=== PATIENT | male | born 1960 | race Hispanic/Latino ===

== ENCOUNTER 2019-01-16 05:20 | Emergency (ER) | payer OTHER ==
[2019-01-16 06:00] LABS: Basophils # (Auto) 0.1 K/mm3 (0.0-0.1); Basophils % (Auto) 0.6 % (0.0-1.8); Eosinophils % (Auto) 0.2 % (0.0-4.3); Hematocrit 45.1 % (35.5-45.6); Hemoglobin 15.8 gm/dl (11.8-15.2); Lymphocytes # (Auto) 1.8 K/mm3 (1.2-5.4); Mean Corpuscular HGB Conc 35 % (32-34); Mean Corpuscular Volume 100 fl (84-94); Monocytes % (Auto) 11.7 % (0.0-7.3); Platelet Count 119 K/mm3 (140-440); Red Blood Count 4.49 M/mm3 (3.65-5.03); Red Cell Distribution Width 12.6 % (13.2-15.2)
[2019-01-16 06:18] LABS: INR 0.96 (0.87-1.13)
[2019-01-16 06:19] LABS: Partial Thromboplastin Time 29.9 Sec. (24.2-36.6)
[2019-01-16 06:20] LABS: BUN/Creatinine Ratio 25; Blood Urea Nitrogen 20 mg/dL (9-20); Calcium 9.4 mg/dL (8.4-10.2); Hemolysis Index 15
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
[2019-01-16] MEDS ORDERED: PROVENTIL IH ONE (06:32)
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
--- NOTE | 2019-01-16 06:46 | XRay Report ---
PROCEDURE: XR WRIST 2V RT TECHNIQUE: RIGHT wrist radiographs, AP and lateral views. HISTORY: Pain and swelling COMPARISONS: None . FINDINGS: Fracture (s) and/or Dislocation(s): None . Alignment: Normal . Joint space(s): Normal . Soft tissues: Normal . Bone mineralization: Normal . Foreign bodies: None . IMPRESSION: Normal Examination . This document is electronically signed by Tk Potter MD., January 16 2019 07:44:49 AM ET
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
[2019-01-16] MEDS ORDERED: SUBLIMAZE IV ONE (07:34)
[2019-01-16] MEDS ORDERED: PERCOCET 5/325 PO ONE (07:34)
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
[2019-01-16 10:01] VITALS: BP 128/89
== END 2019-01-16 13:00 | disposition home or self-care (01) ==
LOC: ED 05:20 → EEVIPCON 05:20 → ED 13:00
DX: S00.03XA Contusion of scalp, initial encounter (principal); M25.511 Pain in right shoulder; M25.551 Pain in right hip; J44.9 Chronic obstructive pulmonary disease, unspecified; I10 Essential (primary) hypertension; E78.00 Pure hypercholesterolemia, unspecified; F17.200 Nicotine dependence, unspecified, uncomplicated; F12.10 Cannabis abuse, uncomplicated; Z95.1 Presence of aortocoronary bypass graft; Z98.890 Other specified postprocedural states; Y04.0XXA Assault by unarmed brawl or fight, initial encounter; Y93.89 Activity, other specified; Y92.89 Other specified places as the place of occurrence of the external cause; Y99.8 Other external cause status
CPT/HCPCS: 36415; 70450; 72100; 73030; 73100; 73502; 80048; 85025; 85610; 85730; 94640; 96374; 99285; J3010